=== PATIENT | male | born 1985 | race Native Hawaiian/Other Pacific Islander ===

== ENCOUNTER 2023-07-03 20:29 | Emergency (ER) | payer OTHER ==
[2023-07-03 20:37] VITALS: BP 127/66; O2SAT 98
--- NOTE | 2023-07-03 20:44 | ED Physician Documentation ---
History of Present Illness - Stated complaint Stated Complaint: RT ANKLE PX - Additonal information Additional information: 37-year-old male presents emergency department for evaluation of acute right ankle pain in the absence of trauma. States he was simply walking the property when he began to feel pain on both sides of the ankle. It got so unbearable he could not bear weight. Initially felt like a cramping sensation. He did take an Aleve and placed an ice pack over his ankle which has improved the pain. No history of similar in the past. Review of Systems Musculoskeletal: reports: Joint pain PD PAST MEDICAL HISTORY - Past Medical History Past Medical History: No Cardiovascular: None Respiratory: None Neuro: None Endocrine/Autoimmune: None GI: None : None HEENT: None Psych: None Musculoskeletal: None Derm: None - Past Surgical History Past Surgical History: Yes Ortho: Other - Allergies Allergies/Adverse Reactions: Allergies Allergy/AdvReac Type Severity Reaction Status Date / Time No Known Drug Allergies Allergy Verified 07/03/23 20:32 - Social History Does the pt smoke?: No Smoking Status: Never smoker Does the pt drink ETOH?: No Does the pt have substance abuse?: No - Immunizations Immunizations are current?: Yes - POLST Patient has POLST: No PD ED PE EXPANDED - Extremities Extremities: Right ankle (no swelling, ecchymosis, erythema. pain with palpation distal to each malleolar prominence. No achilles pain. no pain at base of the 5th metatarsal. NVI) Results - Vitals Vitals: Vital Signs - 24 hr 07/03/23 20:32 Temperature 36.8 C Heart Rate 67 Respiratory 16 Rate Blood Pressure 127/66 O2 Saturation 98 Oxygen O2 Source Room air - Rads (name of study) right ankle Relevant Findings:: Final report received (No significant osseous abnormalities.) PD Medical Decision Making - ED course Complexity details: reviewed results, re-evaluated patient, d/w patient ED course: 37-year-old male here for acute atraumatic right ankle pain. No history of similar in the past. Reports pain with minimal weightbearing. He took some ibuprofen at home and by the time he returned here to the emergency department the pain is markedly improved and he is able to bear some weight. On exam there is no redness fever swelling to suggest infection. An x-ray was unremarkable for findings to suggest occult fracture or dislocation. At this time is not clear with because of the ankle pain is so it may be an atypical presentation for sprain. Patient is advised Topher bandage and crutches. Motrin and Tylenol for analgesia. If not markedly improved over the next week would benefit from reevaluation and perhaps repeat x-ray imaging. The usual emergent return precautions were discussed for any concerns of infection. Departure - Departure Disposition: 01 Home, Self Care Clinical Impression: Right ankle pain Qualifiers: Chronicity: acute Qualified Code(s): M25.571 - Pain in right ankle and joints of right foot Condition: Stable Record reviewed to determine appropriate education?: Yes Comments: Werner the x-ray of your ankle does not show any obvious broken bones or abnormalities. It is not clear what is causing the pain in the ankle. It is possible that this is an atypical presentation for sprain. As discussed at the bedside there is nothing to suggest infection. I would recommend that you wear an Topher wrap when out of bed for the next several days. Use the crutches to help ambulate. Because you found ibuprofen effective at relieving your pain I would recommend over the next several days to take ibuprofen 600 mg with food 2-3 times a day or alternate with 500 mg of Tylenol. If you find your pain and ability to bear weight on the ankle is not markedly improved over the next week or so you may benefit from having the ankle senia- rayed. You may also benefit from being seen by a foot doctor. Return sooner to the ER for any fevers, ankle swelling, redness or red streaking or any concerns of infection
--- NOTE | 2023-07-03 21:01 | XRAY Report ---
PROCEDURE: Ankle 3 View RT INDICATIONS: pain TECHNIQUE: 3 views of the ankle were acquired. COMPARISON: None. FINDINGS: Bones: No fractures or dislocations. Ankle mortise is normally aligned. No suspicious bony lesions . Soft tissues: No tibiotalar joint effusion. Achilles tendon appears normal. IMPRESSION: No significant osseous abnormality. Reviewed by: Je Silva MD on 07/03/2023 9:00 PM [facility] Approved by: Je Silva MD on 07/03/2023 9:00 PM [facility] Station ID: [id number]
== END 2023-07-03 21:49 | disposition home or self-care (01) ==
LOC: ED 20:29
DX: M25.571 Pain in right ankle and joints of right foot (principal)
CPT/HCPCS: 99283

== ENCOUNTER 2024-02-13 08:40 | Outpatient (CLI) | payer OTHER ==
--- NOTE | 2024-02-13 14:52 | XRAY Report ---
PROCEDURE: Finger(s) LT INDICATIONS: CONTUSION LEFT INDEX FINGER TECHNIQUE: AP hand, 3 views of the second finger(s) acquired. COMPARISON: None. FINDINGS: Bones: No acute displaced fracture or dislocation. Soft tissues: No suspicious calcifications. IMPRESSION: No acute radiographic abnormality. If there is high concern for occult injury, consider repeat radiog lyle or cross-sectional imaging. Reviewed by: Liam Mead MD on 02/13/2024 2:50 PM PDT Approved by: Liam Mead MD on 02/13/2024 2:50 PM PDT Station ID: [id number]
== END 2024-02-13 10:56 | disposition home or self-care (01) ==
LOC: DI.N 08:40
PROVIDERS: ATTEND Physician Assistant Medical
DX: S60.022A Contusion of left index finger without damage to nail, initial encounter (principal)